=== PATIENT | female | born 1950 | race Caucasian/White ===

== ENCOUNTER 2019-05-29 18:49 | Emergency (ER) | payer OTHER ==
[~2019-05-29] VITALS: Ht 180.3 cm; Wt 76.2 kg
[~2019-05-29 18:49] MED LIST: HYDR1TAB94 PO; Prednisone20 MG PO
[2019-05-29] MEDS ORDERED: CEPH500 PO (19:05)
[2019-05-29 19:42] LABS: BASOPHILS ABSOLUTE AUTO 0.03 K/mm3 (0.00-0.23); BASOPHILS PERCENT AUTO 1 % (0-2); EOSINOPHILS ABSOLUTE AUTO 0.05 K/mm3 (0.00-0.68); EOSINOPHILS PERCENT AUTO 1 % (0-6); Hematocrit 37.6 % (33.0-51.0); Hemoglobin 11.9 g/dL (11.5-16.0); IMMATURE GRAN ABSOLUTE AUTO 0.03 K/mm3 (0.00-0.10); IMMATURE GRAN PERCENT AUTO 1 % (0-1); LYMPHOCYTES ABSOLUTE AUTO 1.02 K/mm3 (0.84-5.20); LYMPHOCYTES PERCENT AUTO 18 % (21-46); MONOCYTES ABSOLUTE AUTO 0.29 K/mm3 (0.16-1.47); MONOCYTES PERCENT AUTO 5 % (4-13); Mean Corpuscular HGB 29.2 pg (26.0-34.0); Mean Corpuscular HGB Conc 31.6 g/dL (31.5-36.5); Mean Corpuscular Volume 92 fL (80-100); Mean Platelet Volume 11.9 fL (9.1-12.4); NEUTROPHILS ABSOLUTE AUTO 4.16 K/mm3 (1.96-9.15); NEUTROPHILS PERCENT AUTO 75 % (41-73); Platelet Count 193 K/mm3 (150-400); RDW Coefficient Variation 14.5 % (11.7-14.2); RDW Standard Deviation 48.9 fL (35.1-46.3); Red Blood Cell Count 4.08 M/mm3 (3.80-5.20); White Blood Cell Count 5.58 K/mm3 (4.00-11.30)
[2019-05-29 20:04] LABS: Alanine Aminotransfer (ALT/SGP 13 U/L (12-78); Albumin, Blood 3.5 g/dL (3.4-5.0); Alk Phos 124 U/L (50-136); Anion Gap 5 mmol/L (6-16); Aspartate Aminotrans (AST/SGOT 13 U/L (12-37); Bilirubin, Total 0.6 mg/dL (0.1-1.0); Blood Urea Nitrogen 21 mg/dL (8-24); Bun/Creatinine Ratio 26.9 (12.0-20.0); CO2, Blood 26 mmol/L (21-32); Calcium, Blood 8.9 mg/dL (8.5-10.1); Chloride, Blood 109 mmol/L (98-108); Creatinine, Blood 0.78 mg/dL (0.40-1.00); Globulin, Blood 3.4 g/dL (2.2-4.0); Glomerular Filtration Rate >60 (60-); Glucose, Blood 112 mg/dL (70-99); Sodium, Blood 140 mmol/L (136-145); Total Protein, Blood 6.9 g/dL (6.4-8.2); Troponin I <0.015 ng/mL (0.000-0.040)
== END 2019-05-29 22:45 | disposition home or self-care (01) ==
LOC: ER 18:49
PROVIDERS: Physician Assistant
DX: R55 Syncope and collapse (principal); Z88.5 Allergy status to narcotic agent
CPT/HCPCS: 36415; 80053; 84484; 85025; 93005; 93010; 99284-25; A9270-GY

== ENCOUNTER 2023-11-01 13:02 | Emergency (ER) | payer OTHER, MEDICARE ==
[~2023-11-01] VITALS: Ht 180.3 cm; Wt 74.8 kg
[~2023-11-01 13:02] MED LIST changes: +CEPH500 PO; +METO5A PO
[2023-11-01] MEDS ORDERED: AMLODIPINE BESY10 MG PO (13:38)
[2023-11-01] MEDS ORDERED: HYDROCODONE-AC1 EA10 PO (14:41)
[2023-11-01 15:46] VITALS: BP 134/62
[2023-11-01] MEDS ORDERED: Norco 5-325 Ta1 EACH PO (15:49)
== END 2023-11-01 15:46 | disposition home or self-care (01) ==
LOC: ER 13:02
DX: S52.591A Other fractures of lower end of right radius, initial encounter for closed fracture (principal); Z88.5 Allergy status to narcotic agent; K76.89 Other specified diseases of liver; Z79.899 Other long term (current) drug therapy; W01.0XXA Fall on same level from slipping, tripping and stumbling without subsequent striking against object, initial encounter
CPT/HCPCS: 29125; 73110; 96374-59; 99283-25; J3010

== ENCOUNTER → 2024-02-02 | Outpatient (CLI) | payer MEDICARE | LOC: LAB SHORT 17:19 → LAB 17:19 | DX: R19.7 Diarrhea, unspecified (principal) ==